=== PATIENT | female | born 1975 | race Two or more races ===

== ENCOUNTER → 2016-08-09 | Outpatient (CLI) | payer BC ==
[~2016-08-09] MED LIST: FIORICET PO; UROCIT PO
--- NOTE | 2016-08-09 10:40 | RADRPT ---
PROCEDURE: XR left knee. CLINICAL INDICATION: Knee pain TECHNIQUE: AP weightbearing, PA weightbearing, lateral weightbearing and sunrise views are availab le for review. COMPARISON: None available FINDINGS: There is moderate to severe osteoarthrosis involving the medial tibial femoral compartment and mild to moderate osteoarthrosis involving the lateral tibial femoral compartment and the patellofemoral c ompartment. This is associated with joint space narrowing, subchondral sclerosis and osteophytosis. There is otherwise normal mineralization, architecture and alignment. No fractures are identified. No osseous lesions are identified. The soft tissues are unremarkable. IMPRESSION: Moderate to severe osteoarthrosis involving the medial tibial femoral compartment and mild to modera te osteoarthrosis involving the lateral tibial femoral compartment and the patellofemoral compartmen t. RPTAT: HGDB .Bulmaro Estrada MD, Date Time Electronically viewed and signed by .Bulmaro Estrada MD, on 08/09/2016 10:39 .B/
== END | disposition home or self-care (01) ==
LOC: HKI 09:20
PROVIDERS: ATTEND Orthopaedic Surgery
DX: M25.562 Pain in left knee (principal); M17.12 Unilateral primary osteoarthritis, left knee
CPT/HCPCS: 73564; G0463

== ENCOUNTER → 2016-09-17 | Outpatient (CLI) | payer BC ==
--- NOTE | 2016-09-17 12:36 | RADRPT ---
PROCEDURE: Limited x-ray of both lower extremities. CLINICAL INDICATION: Bilateral leg pain. TECHNIQUE: Single frontal view of both lower extremities was obtained from the hips to the calves. COMPARISON: Left knee radiographs dated 08/09/2016. FINDINGS: There are mild degenerative changes of the hips with osteophytes noted. There are moderate degenera tive changes of both knees with medial joint compartment narrowing and osteophytes. Left is worse t moreira right. IMPRESSION: 1. Mild degenerative changes of the hips. 2. Moderate degenerative changes of the knees with left worse than right. RPTAT: QQ .Adalberto Davison MD, MD Date Time Electronically viewed and signed by .Adalberto Davison MD, on 09/17/2016 12:35 .R/
== END | disposition home or self-care (01) ==
LOC: HKI 09:32
PROVIDERS: ATTEND Orthopaedic Surgery
DX: M16.0 Bilateral primary osteoarthritis of hip (principal); M17.0 Bilateral primary osteoarthritis of knee
CPT/HCPCS: 77073

== ENCOUNTER 2016-09-28 12:11 | Inpatient (IN) | payer BC ==
[~2016-09-28] VITALS: Ht 160 cm; Wt 85.0 kg
[2016-09-28] VITALS (20 sets, daily range): BP systolic 100–133; BP diastolic 51–68; PULSE 58–98; RESP 12–20; Ht 160 cm; Wt 85.0 kg
[~2016-09-28 12:11] MED LIST changes: +BUPIVACAINE LIPOSOME/PF 266 MG/20 ML VIAL INFIL ONE; +CEFAZOLIN 1 GM INJ ONE; +CEFAZOLIN 2GM/50 ML (PMX) 50 ML X1 BEFORE INCISION IVPB ONE; +CELECOXIB 400 MG PO X1 DOSE PO ONE; +EXPAREL NOTE (BUPIVICAINE LIPOSOMAL) XX SCH; +LACTATED RINGER'S 1,000 ML IV SCH; +PAIN COCKTAIL-CEFUROXIME IRR ONE; +PREGABALIN 300 MG PO X1 PO ONE; +TRANEXAMIC ACID in SOD CHLORIDE 0.9% 100 ML FOR INTRAOP IVPB ONE; +TRANEXAMIC ACID in SOD CHLORIDE 0.9% 100 ML ON CALL TO OR IV ONE; +VANCOMYCIN 1 GM/NS 250 ML X1 BEFORE INCISION IVPB ONE; +oxyCODONE (CR) 10 MG TAB [oxyCONTIN] X1 DOSE PO ONE; +traMADOL 50 MG TAB X 1 DOSE PO ONE
[2016-09-28] MEDS ORDERED: BACITRACIN 50000 UNITS INJ ONE (13:46)
--- NOTE | 2016-09-28 16:14 | HPN ---
Date/Time of Note Date/Time of Note DATE: 09/28/16 TIME: 16:14 Interval H&P Admission Note Pt. seen H&P reviewed: No system changes No changes from H&P on 09/16/16 by DAPHNE Ramsay MD Sep 28, 2016 16:14
[2016-09-28] MEDS ORDERED: SODIUM CL BACTERIOSTATIC 30 ML INJ ONE (16:15)
[2016-09-28] MEDS ORDERED: POLYMYXIN B 500000 UNIT INJ ONE (16:15)
[2016-09-28] MEDS ORDERED: FENTAnyl 50 MCG/ML VIAL ONE (16:31)
[2016-09-28] MEDS ORDERED: LIDOCAINE 2% (SDV) 5 ML INJ ONE (16:31)
[2016-09-28] MEDS ORDERED: PROPOFOL 100 ML ONE (16:31)
[2016-09-28] MEDS ORDERED: MIDAZOLAM 1 MG/ML 2 ML INJ ONE (16:32)
[2016-09-28] MEDS: VANCOMYCIN 1 GM INJ ONE ×2 (17:34→17:37)
[2016-09-28] MEDS ORDERED: ONDANSETRON 4 MG INJ IV PRN ×2 (19:00→19:30)
[2016-09-28] MEDS ORDERED: PROCHLORPERAZINE 10 MG INJ IV PRN (19:00)
[2016-09-28] MEDS ORDERED: DIPHENHYDRAMINE 50 MG INJ IV PRN (19:00)
[2016-09-28] MEDS ORDERED: FENTAnyl 50 MCG/ML VIAL IV PRN ×3 (19:00)
[2016-09-28] MEDS ORDERED: MEPERIDINE 25 MG INJ IV PRN (19:00)
[2016-09-28] MEDS ORDERED: HYDROmorphONE (0.2 MG/ML) 10ML SYG IV PRN ×3 (19:00)
--- NOTE | 2016-09-28 19:12 | PN ---
Date/Time of Note Date/Time of Note DATE: 09/28/16 TIME: 19:10 Assessment/Plan Lines/Catheters IV Catheter Type (from Nrsg): Peripheral IV Assessment/Plan Assessment/Plan Stable in PACU, s/p left TKA -continue Ancef -pain meds as needed -ASA/SCDs -OOB with PT -check AM labs -monitor drain -d/c suggs in AM XR of the left knee is pending at this time Subjective 24 Hr Interval Summary Stable in PACU. Denies pain. Moving all extremities. Drowsy from anesthesia. Exam/Review of Systems Vital Signs Vitals Vital Signs Date Time Temp Pulse Resp B/P Pulse Ox O2 Delivery O2 Flow Rate FiO2 09/28/16 13:35 98.5 74 20 133/59 100 Room Air Exam Free Text/Dictation Hemovac: minimal Dressing dry Incision clean, dry, and intact without redness or drainage Thigh soft 5/5 Quadriceps, Tibialis Anterior, EHL, Gastroc, Soleus, Peroneals Normal sensation Palpable DT/PT, CR <2 sec No distal edema RUBÉN SAMAYOA PA-C Sep 28, 2016 19:12
--- NOTE | 2016-09-28 19:20 | OPR ---
Date/Time of Note Date/Time of Note DATE: 09/28/16 TIME: 19:19 Operative Report Free Text/Dictation Dictation # [id number] Preoperative Diagnosis Left Knee OA Postoperative Diagnosis Same Operation/Procedure Performed Left TKA Surgeon: DAPHNE HARE MD pharmacy assistant: RUBÉN SAMAYOA PA-C Anesthesia: general, spinal Estimated Blood Loss: 50 - 100 ml's Specimens Bone and soft tissue Grafts/Implants Depuy Attune TKA Complications: None DAPHNE HARE MD Sep 28, 2016 19:19
[2016-09-28 19:29] LABS: HEMATOCRIT 35.9 % (37.0-47.0); HEMOGLOBIN 11.7 g/dl (12.0-16.0)
[2016-09-28] MEDS ORDERED: DIPHENHYDRAMINE 25 MG CAP PO PRN (19:30)
[2016-09-28] MEDS ORDERED: NACL 0.9% 3 ML SYG IV SCH (19:30)
[2016-09-28] MEDS ORDERED: NA PHOSPHATE/BIPHOS 133 ML ENEMA PR PRN (19:30)
[2016-09-28] MEDS ORDERED: ASPIRIN (EC) 325 MG TAB PO ONE (19:30)
[2016-09-28] MEDS ORDERED: BISACODYL 10 MG SUPP PR PRN (19:30)
[2016-09-28] MEDS ORDERED: HYDROmorphONE 1 MG/ML SYG IV PRN (19:30)
[2016-09-28] MEDS ORDERED: MAGNESIUM HYDROXIDE 30ML CUP PO PRN (19:30)
[2016-09-28] MEDS: LACTATED RINGER'S 1,000 ML IV SCH (19:33)
[2016-09-28] MEDS: CEFAZOLIN 2 GM/50 ML (PMX) 50 ML IVPB SCH (19:33)
--- NOTE | 2016-09-28 19:39 | RADRPT ---
PROCEDURE: X-ray left knee CLINICAL INDICATION: The patient is status post left knee arthroplasty. TECHNIQUE: 2 views left knee COMPARISON: Left knee plain film series dated 08/09/2016. FINDINGS: Left knee arthroplasty is new, without evident hardware complication. Post surgical air and fluid o daija the left knee. Post surgical drain in place. No acute fracture or dislocation. IMPRESSION: No evident hardware complication or acute fracture. RPTAT: [facility] Physician Silverio Date Time Electronically viewed and signed by Karime Salinas Physician on 09/28/2016 19:38 RS/
[2016-09-28 19:57] LABS: CALCIUM 8.3 mg/dl (8.4-10.2); CREATININE 0.73 mg/dl (0.44-1.00); POTASSIUM 4.2 mmol/L (3.5-5.1)
[2016-09-28] MEDS: DOCUSATE SODIUM 100 MG CAP PO SCH (21:32)
[2016-09-28] MEDS: PREGABALIN 50 MG CAP PO SCH (21:32)
[2016-09-28] MEDS ORDERED: TRANEXAMIC ACID 850 MG in SOD CHLORIDE 0.9% 100 ML IVPB ONE (22:30)
[2016-09-29 00:01] VITALS: BP 110/58; RESP 17
[2016-09-29] MEDS ORDERED: TRANEXAMIC ACID 850 MG in SOD CHLORIDE 0.9% 100 ML IVPB ONE (01:30)
[2016-09-29] MEDS: CEFAZOLIN 2 GM/50 ML (PMX) 50 ML IVPB SCH ×2 (03:28→12:14)
[2016-09-29 05:28] LABS: HEMATOCRIT 34.1 % (37.0-47.0); HEMOGLOBIN 11.1 g/dl (12.0-16.0)
[2016-09-29 05:41] VITALS: BP 112/59; PULSE 57; RESP 18
[2016-09-29 05:44] LABS: CALCIUM 8.6 mg/dl (8.4-10.2); CREATININE 0.68 mg/dl (0.44-1.00); POTASSIUM 4.7 mmol/L (3.5-5.1)
[2016-09-29] MEDS: PANTOPRAZOLE (EC) 40 MG TAB PO SCH ×2 (05:51→18:11)
[2016-09-29] MEDS: LACTATED RINGER'S 1,000 ML IV SCH ×3 (05:51→18:19)
[2016-09-29] MEDS: traMADol 50 MG TAB PO SCH ×4 (05:51→18:00)
[2016-09-29 06:02] LABS: ADD UMIC NO; UR ASCORBIC ACID NEGATIVE (NEGATIVE); UR BILIRUBIN (Dip) NEGATIVE (NEGATIVE); UR BLOOD (Dip) NEGATIVE (NEGATIVE); UR CLARITY CLEAR (CLEAR); UR COLOR STRAW (YELLOW); UR GLUCOSE (Dip) NEGATIVE (NEGATIVE); UR KETONES (Dip) 1+ mg/dL (NEGATIVE); UR LEUKOCYTE ESTERASE (Dip) NEGATIVE Leu/ul (NEGATIVE); UR NITRITE (Dip) NEGATIVE (NEGATIVE); UR SPECIFIC GRAVITY (Dip) 1.017 (1.003-1.030); UR TOTAL PROTEIN (Dip) NEGATIVE (NEGATIVE); UR UROBILINOGEN (Dip) NEGATIVE (NEGATIVE)
[2016-09-29 07:00] VITALS: BP 108/55; RESP 18
--- NOTE | 2016-09-29 07:49 | CONS ---
Date/Time of Note Date/Time of Note DATE: 09/29/16 TIME: 07:41 Assessment/Plan Assessment/Plan Chief Complaint/Hosp Course Impression: 1. This patient is now one day postop a left total knee replacement. 2. She is doing well. Her labs are acceptable and her vital signs are stable. 3. She had some nausea yesterday which has resolved today. She denies any vomiting. Plan: 1. Continue current medication and treatment plan. 2. Physical therapy to start today 3. Postop total knee replacement protocol 4. I will follow patient along with you Problems: Consultation Date/Type/Reason Admit Date/Time Sep 28, 2016 at 12:11 Date of Consultation: Sep 29, 2016 Type of Consultation: Medicine Reason for Consultation Nausea Hx of Present Illness I am seeing this patient today as a medicine consultation. The patient is 1 day postop a left total knee replacement. The patient is awake and alert. The patient did have some postop nausea which has resolved. She denies any chest pain or shortness of breath. Preoperatively the patient was having increasing left knee pain. It was interfering with her ability to walk. She decided to undergo a total knee replacement after failing conservative medical therapy. Constitutional: improved, no complaints ENT: no complaints Respiratory: no complaints Cardiovascular: no complaints Gastrointestinal: no complaints Genitourinary: no complaints Neurologic: no complaints Past Medical History Medical History: no pertinent history Family History Significant Family History: no pertinent family hx Social History Alcohol Use: none Smoking Status: Never smoker Drug Use: none Exam/Review of Systems Vital Signs Vitals Vital Signs Date Time Temp Pulse Resp B/P Pulse Ox O2 Delivery O2 Flow Rate FiO2 09/29/16 05:41 97.4 57 18 112/59 99 Nasal Cannula 2.0 Intake and Output 09/28/16 09/28/16 09/29/16 15:00 23:00 07:00 Intake Total 108.5 ml 400 ml Output Total 380 ml 2160 ml Balance -271.5 ml -1760 ml Exam Constitutional: alert, oriented, well developed Psych: nl mood/affect, no complaints Respiratory: clear to auscultation, normal air movement Cardiovascular: nl pulses, regular rate and rhythm Gastrointestinal: nl liver, spleen, non-tender, soft Musculoskeletal: nl extremities to inspection Results Result Diagram: 09/29/16 0444 09/29/16 0444 Results 24 hrs Laboratory Tests Test 09/28/16 19:25 09/29/16 04:44 09/29/16 05:00 09/29/16 05:49 Hemoglobin 11.7 L 11.1 L Hematocrit 35.9 L 34.1 L Sodium Level 135 133 L Potassium Level 4.2 4.7 Chloride Level 106 102 Carbon Dioxide Level 24 25 Anion Gap 9 11 Blood Urea Nitrogen 9 7 Creatinine 0.73 0.68 Glucose Level 96 107 Calcium Level 8.3 L 8.6 Urine Color STRAW Urine Clarity CLEAR Urine pH 6.0 Urine Specific [place] 1.017 Urine Ketones 1+ H Urine Nitrite NEGATIVE Urine Bilirubin NEGATIVE Urine Urobilinogen NEGATIVE Urine Leukocyte Esterase NEGATIVE Urine Hemoglobin NEGATIVE Urine Glucose NEGATIVE Urine Total Protein NEGATIVE Lab Scanned Report LAB Medications Medications Current Medications Miscellaneous Information 1 ea 1 ea NOTE XX ; Start 09/28/16 at 09:00; Stop at 08:59 Lactated Ringer's (Lr) 1,000 ml @ 125 mls/hr Q8H IV Last administered on 05:51; Admin Dose 125 MLS/HR; Start 09/28/16 at 19:04 Tramadol HCl (Ultram) 50 mg Q6 PO Last administered on 09/29/16 05:51; Admin Dose 50 MG; Start 09/29/16 at 00:00; Stop 10/01/16 at 23:59 Hydromorphone HCl 1 mg 1 mg Q3H PRN IV PAIN LEVEL 8-10; Start 09/28/16 at 19:30 Cefazolin Sodium/ Dextrose (Ancef 2 Gm/50 ml (Pmx)) 50 ml @ 100 mls/hr Q8H IVPB Last administered on 09/29/16 03:28; Admin Dose 100 MLS/HR; Start at 19:30; Stop 09/29/16 at 11:59 Ondansetron HCl (Zofran Inj) 4 mg Q6H PRN IV NAUSEA AND/OR VOMITING; Start 02/04 at 19:30 Bisacodyl (Dulcolax Supp) 10 mg Q12H PRN [place] CONSTIPATION; Start 09/28/16 at 19: 30 Magnesium Hydroxide (Milk Of Mag) 30 ml BID PRN PO CONSTIPATION; Start at 19:30 Sodium Biphosphate/ Sodium Phosphate (Fleet Enema) 133 ml DAILY PRN [place] CONSTIPATION; Start 09/28/16 at 19:30 Docusate Sodium (Colace) 100 mg BID PO Last administered on 09/28/16 21:32; Admin Dose 100 MG; Start 09/28/16 at 21:00 Diphenhydramine HCl (Benadryl) 25 mg Q6H PRN PO PRURITUS; Start 09/28/16 at 19: 30 Acetaminophen/ Hydrocodone Bitart ([place] (7.5-325)) 1 tab Q4H PRN PO PAIN LEVEL 1-3; Start 09/28/16 at 19:30 Acetaminophen/ Hydrocodone Bitart ([place] (7.5-325)) 2 tab Q4H PRN PO PAIN LEVEL 4-7; Start 09/28/16 at 19:30 Aspirin (Ecotrin) 325 mg BID PO ; Start 09/29/16 at 09:00 Pantoprazole (Protonix Tab) 40 mg BID@06,18 PO Last administered on 09/29/16 05:51; Admin Dose 40 MG; Start 09/29/16 at 06:00 Pregabalin (Lyrica) 50 mg BID PO Last administered on 09/28/16 21:32; Admin Dose 50 MG; Start 09/28/16 at 21:00 BOYD VARGAS MD Sep 29, 2016 07:49
--- NOTE | 2016-09-29 09:00 | PN ---
Date/Time of Note Date/Time of Note DATE: 09/29/16 TIME: 08:58 Assessment/Plan Lines/Catheters IV Catheter Type (from Nrsg): Peripheral IV Ruiz in Place (from Nrsg): Yes Assessment/Plan Assessment/Plan Stable POD #1, s/p left TKA -d/c Ancef -pain meds as needed -ASA/SCDs -OOB with PT -drain removed -check AM labs -d/c planning. Will plan to go home upon discharge Subjective 24 Hr Interval Summary No acute overnight events. Denies significant pain. Did not start PT yesterday. VSS, afebrile. Will plan to go home upon discharge. Exam/Review of Systems Vital Signs Vitals Vital Signs Date Time Temp Pulse Resp B/P Pulse Ox O2 Delivery O2 Flow Rate FiO2 09/29/16 07:00 97.5 56 18 108/55 98 09/29/16 05:41 Nasal Cannula 2.0 Intake and Output 09/28/16 09/28/16 09/29/16 15:00 23:00 07:00 Intake Total 108.5 ml 400 ml Output Total 380 ml 2160 ml Balance -271.5 ml -1760 ml Exam Free Text/Dictation Hemovac: 90cc Dressing dry Incision clean, dry, and intact without redness or drainage Thigh soft 5/5 Quadriceps, Tibialis Anterior, EHL, Gastroc, Soleus, Peroneals Normal sensation Palpable DT/PT, CR <2 sec No distal edema Results Result Diagram: 09/29/16 0444 09/29/16 0444 RUBÉN SAMAYOA PA-C Sep 29, 2016 09:00
--- NOTE | 2016-09-29 09:12 | RADRPT ---
PROCEDURE: CR Left Knee CLINICAL INDICATION: Left knee replacement TECHNIQUE: A single AP view of the left knee was submitted. COMPARISON: 09/27/2016 FINDINGS: Osseous Structures: An image was taken with metallic components of the left knee arthroplasty projec ting over the articular surfaces. The visualized osseous elements otherwise appear intact. Joint Spaces: The joint spaces are poorly defined. Soft Tissues: The soft tissues appear unremarkable. IMPRESSION: A single AP image pleural of the left July 22 planning total left knee arthroplasty. Physician Mp Date Time Electronically viewed and signed by Karime Mooney Physician on 09/29/2016 09:11 RH/
[2016-09-29] MEDS: PREGABALIN 50 MG CAP PO SCH ×2 (09:21→20:38)
[2016-09-29] MEDS: DOCUSATE SODIUM 100 MG CAP PO SCH ×2 (09:21→20:38)
[2016-09-29] MEDS: ASPIRIN (EC) 325 MG TAB PO SCH ×2 (09:22→20:37)
[2016-09-29] MEDS: HYDROCODONE/APAP (7.5/325) TAB PO PRN ×2 (16:33→20:36)
[2016-09-29 19:55] VITALS: BP 119/56; RESP 18
[2016-09-30] MEDS: traMADol 50 MG TAB PO SCH ×3 (01:43→12:00)
[2016-09-30] MEDS: LACTATED RINGER'S 1,000 ML IV SCH ×2 (03:04→11:04)
[2016-09-30] MEDS: HYDROCODONE/APAP (7.5/325) TAB PO PRN ×2 (05:03→11:57)
[2016-09-30 06:28] LABS: HEMATOCRIT 32.2 % (37.0-47.0); HEMOGLOBIN 10.3 g/dl (12.0-16.0)
[2016-09-30] MEDS: PANTOPRAZOLE (EC) 40 MG TAB PO SCH (06:30)
[2016-09-30 06:55] LABS: CALCIUM 8.7 mg/dl (8.4-10.2); CREATININE 0.57 mg/dl (0.44-1.00); POTASSIUM 3.6 mmol/L (3.5-5.1)
[2016-09-30 08:48] VITALS: BP 115/57; RESP 18
[2016-09-30] MEDS: PREGABALIN 50 MG CAP PO SCH (09:34)
[2016-09-30] MEDS: DOCUSATE SODIUM 100 MG CAP PO SCH (09:34)
[2016-09-30] MEDS: ASPIRIN (EC) 325 MG TAB PO SCH (09:34)
--- NOTE | 2016-09-30 12:03 | PDOCDIS ---
Discharge Instructions DIAGNOSIS Discharge Diagnosis s/p left TKA CONDITION Patient Condition: Good HOME CARE INSTRUCTIONS: Diet Instructions: Regular ACTIVITY: Activity Restrictions: Slowly Increase Activity Rest between Activity Avoid heavy lifting Do not operate Machinery Do not operate Power Tool Avoid Heavy Housework Keep Limb Elevated Weight Bearing Bathing Restrictions: Shower FOLLOW UP/APPOINTMENTS Follow-up Plan follow up in the office on 10/08/16 OTHER ORDERS: Other Orders: S/P TKA Physical Therapy: Three times per week at home x 2 weeks Daily in Rehab/SNF WB STATUS: WBAT 1. Strengthening exercises for both upper and un-operated lower extremities. 2. Gait training with front wheeled walker 3. Active range of motion exercises to operative knee. 4. When not working on knee range of motion exercises, distal towel roll under operative ankle/distal calf to promote full extension. 5. DO NOT PUT ANYTHING BEHIND OPERATIVE KNEE!!! 6. Quadriceps and hamstring strengthening. 7. May switch to cane in contra lateral hand 6 weeks after surgery. 8. Physical Therapy can open case if nursing is not available. 9. Use Ice Machine as instructed from date of surgery while at rest 3X/day. 10. Patient requires mobile SCDs to reduce risk of developing DVT following TKA. Patient will use the mobile SCDs for 30 days postoperatively. Bathing assistance by home health aide twice weekly if Medicare patient. Occupational Therapy: Evaluation for assistive devices and ADL training. Wound Care: Keep incision dry & covered with Tegaderm until first visit with Dr. Chavez Anticoagulation Orders: Enteric Coated Aspirin 325 mg po bid x 6 weeks from date of surgery Follow-up:Call for an appointment with Dr. Chavez in 1 week after discharged from hospital at DME Orders: FWBrad, 3-in-1 Commode, Polar ice machine, Mobile SCDs RUBÉN SAMAYOA PA-C Sep 30, 2016 12:03
[2016-09-30] MEDS ORDERED: PREG50CA PO (12:40)
[2016-09-30] MEDS ORDERED: ASPI325T32 PO (12:40)
[2016-09-30] MEDS ORDERED: TRAM50TA2 PO (12:40)
[2016-09-30] MEDS ORDERED: PANT40TA4 PO (12:40)
[2016-09-30] MEDS ORDERED: HYDR-3605 PO (12:40)
--- NOTE | 2016-09-30 13:17 | CONS ---
Date/Time of Note Date/Time of Note DATE: 09/30/16 TIME: 13:12 Assessment/Plan Assessment/Plan Chief Complaint/Hosp Course Impression: 1. This patient is now two days postop a left total knee replacement. 2. She is doing well. Her labs are acceptable and her vital signs are stable. Plan: 1. She has been cleared by PT and can be discharged to home today . Problems: Consultation Date/Type/Reason Admit Date/Time Sep 28, 2016 at 12:11 Initial Consult Date 09/29/16 Type of Consultation: Medicine 24 HR Interval Summary Free Text/Dictation She is now 2 days post op a L TKA .She is doing well . She has been up walking with PT . Constitutional: improved, no complaints Exam/Review of Systems Vital Signs Vitals Vital Signs Date Time Temp Pulse Resp B/P Pulse Ox O2 Delivery O2 Flow Rate FiO2 09/30/16 08:48 98.3 69 18 115/57 97 09/29/16 05:41 Nasal Cannula 2.0 Intake and Output 09/29/16 09/29/16 09/30/16 15:00 23:00 07:00 Intake Total 50 ml 2560 ml 450 ml Output Total 1900 ml 700 ml Balance 50 ml 660 ml -250 ml Exam Constitutional: alert, oriented, well developed Respiratory: clear to auscultation, normal air movement Cardiovascular: nl pulses, regular rate and rhythm Gastrointestinal: nl liver, spleen, non-tender, soft Musculoskeletal: nl extremities to inspection Results Result Diagram: 09/30/16 0513 09/30/16 0513 Results 24 hrs Laboratory Tests Test 09/30/16 05:13 Hemoglobin 10.3 L Hematocrit 32.2 L Sodium Level 130 L Potassium Level 3.6 Chloride Level 99 Carbon Dioxide Level 30 Anion Gap 5 L Blood Urea Nitrogen 6 L Creatinine 0.57 Glucose Level 103 Calcium Level 8.7 Medications Medications Current Medications Miscellaneous Information 1 ea 1 ea NOTE XX ; Start 09/28/16 at 09:00; Stop at 08:59 Lactated Ringer's (Lr) 1,000 ml @ 125 mls/hr Q8H IV Last administered on 03:04; Admin Dose 125 MLS/HR; Start 09/28/16 at 19:04 Tramadol HCl (Ultram) 50 mg Q6 PO Last administered on 09/30/16 01:43; Admin Dose 50 MG; Start 09/29/16 at 00:00; Stop 10/01/16 at 23:59 Hydromorphone HCl (Dilaudid) 1 mg Q3H PRN IV PAIN LEVEL 8-10; Start 09/28/16 at 19:30 Ondansetron HCl (Zofran Inj) 4 mg Q6H PRN IV NAUSEA AND/OR VOMITING; Start 02/04 at 19:30 Bisacodyl (Dulcolax Supp) 10 mg Q12H PRN [place] CONSTIPATION; Start 09/28/16 at 19: 30 Magnesium Hydroxide (Milk Of Mag) 30 ml BID PRN PO CONSTIPATION; Start at 19:30 Sodium Biphosphate/ Sodium Phosphate (Fleet Enema) 133 ml DAILY PRN [place] CONSTIPATION; Start 09/28/16 at 19:30 Docusate Sodium (Colace) 100 mg BID PO Last administered on 09/30/16 09:34; Admin Dose 100 MG; Start 09/28/16 at 21:00 Diphenhydramine HCl (Benadryl) 25 mg Q6H PRN PO PRURITUS; Start 09/28/16 at 19: 30 Acetaminophen/ Hydrocodone Bitart ([place] (7.5-325)) 1 tab Q4H PRN PO PAIN LEVEL 1-3 Last administered on 09/30/16 11:57; Admin Dose 1 TAB; Start at 19:30 Acetaminophen/ Hydrocodone Bitart ([place] (7.5-325)) 2 tab Q4H PRN PO PAIN LEVEL 4-7 Last administered on 09/30/16 05:03; Admin Dose 2 TAB; Start at 19:30 Aspirin (Ecotrin) 325 mg BID PO Last administered on 09/30/16 09:34; Admin Dose 325 MG; Start 09/29/16 at 09:00 Pantoprazole (Protonix Tab) 40 mg BID@18 PO Last administered on 09/30/16 06:30; Admin Dose 40 MG; Start 09/29/16 at 06:00 Pregabalin (Lyrica) 50 mg BID PO Last administered on 09/30/16 09:34; Admin Dose 50 MG; Start 09/28/16 at 21:00 BOYD VARGAS MD Sep 30, 2016 13:17
--- NOTE | 2016-09-30 15:39 | PN ---
Date/Time of Note Date/Time of Note DATE: 09/30/16 TIME: 15:38 Assessment/Plan Lines/Catheters IV Catheter Type (from Nrsg): Saline Lock Ruiz in Place (from Nrsg): Yes Assessment/Plan Assessment/Plan Stable POD #2, s/p left TKA -pain meds as needed -ASA/SCDs -OOB with PT -dressing changed -discharge home today -follow up in the office on 10/08/16 Subjective 24 Hr Interval Summary No acute overnight events. Having mild pain but controlled with pain medication. VSS, afebrile. Would like to go home today. Exam/Review of Systems Vital Signs Vitals Vital Signs Date Time Temp Pulse Resp B/P Pulse Ox O2 Delivery O2 Flow Rate FiO2 09/30/16 08:48 98.3 69 18 115/57 97 09/29/16 05:41 Nasal Cannula 2.0 Intake and Output 09/29/16 09/29/16 09/30/16 15:00 23:00 07:00 Intake Total 50 ml 2560 ml 450 ml Output Total 1900 ml 700 ml Balance 50 ml 660 ml -250 ml Exam Free Text/Dictation Dressing dry Incision clean, dry, and intact without redness or drainage Thigh soft 5/5 Quadriceps, Tibialis Anterior, EHL, Gastroc, Soleus, Peroneals Normal sensation Palpable DT/PT, CR <2 sec No distal edema Results Result Diagram: 09/30/1651209/30/16512 RUBÉN SAMAYOA PA-C Sep 30, 2016 15:39
--- NOTE | 2016-10-06 03:54 | OPR ---
DATE OF OPERATION: 09/28/2016 PREOPERATIVE DIAGNOSIS: Left knee osteoarthritis. POSTOPERATIVE DIAGNOSIS: Left knee osteoarthritis. OPERATION PERFORMED: Left total knee arthroplasty. SURGEON: Ugo Chavez MD. RESCUE WORKER: Marques Quinones PA-C. COMPONENTS USED: DePuy Attune size 5 narrow femoral compenent, size [address], 8-mm polyethylene insert, 38-mm patellar button. ANESTHESIA: Spinal plus general endotracheal intubation plus periarticularinjection. ANESTHESIOLOGIST: Christen Klein MD. TOURNIQUET TIME: 68 minutes. ESTIMATED BLOOD LOSS: 50 mL. INTRAVENOUS FLUIDS: 1800 mL of crystalloid. SPECIMENS: Bone and soft tissue. DRAINS: Hemovac x1. COMPLICATIONS: None. DISPOSITION: The patient tolerated the procedure well and was taken to the recovery room in stable condition. INDICATIONS: The patient is 40-year-old woman who has had worsening pain in the left knee with radiographic evidence of severe osteoarthritis primarily in the medial compartment. I felt she would benefit from either a medial unicondylar replacement or a total knee arthroplasty depending on the condition of the lateral and femoral compartments. She has not improved with nonsurgical means of treatment including activity modifications, pain medications, intra-articular injections and ambulatory assist devices. Despite these measures she has had worsening pain and I felt that she would benefit from either a medial unicondylar replacement or a total knee arthroplasty. The risks, benefits, and alternatives of the procedure were explained in detail to the patient. I explained the risks of the surgery to include but not be limited to, bleeding and possible need for blood transfusion; infection; pain; stiffness; neurovascular injury with possible numbness, weakness, and/or paralysis anywhere from the knee down to the toes; fracture; instability; dislocation; wear and/or loosening of the prosthesis and possible need for future revision; blood clots; pulmonary embolism; and anesthetic complications such as heart attack, stroke, GI bleed, pneumonia, and/or . Ample time was allowed for the patient to ask questions, all of which were addressed and answered. The patient understood the risks involved and wished to proceed. Informed consent was signed prior to the procedure. PROCEDURE: The patient's left knee was initialed with a marking pen in the preoperative area to identify the correct operative site. The patient was brought to the operating room and transferred from the [facility] to the operating table where a spinal anesthetic was administered. The patient was then anesthetized and intubated. A Ruiz catheter was placed. A timeout was performed to confirm that the left leg was the correct operative site. The patient was given 2 g of Ancef within one hour prior to the procedure. A tourniquet was placed on the operative proximal thigh. The operative knee and lower extremity were prepped and draped in the usual sterile fashion. The operative lower extremity was elevated and exsanguinated with an Esmarch tourniquet. The proximal thigh tourniquet was inflated to 300 mmHg. The knee was flexed. A midline incision was made and carried down through the subcutaneous tissue and fat with sharp dissection. Limited medial and lateral flaps were raised. A medial parapatellar arthrotomy approach was performed. Synovial fluid was normal in color and consistency. The patella was everted and the knee flexed. There were severe tricompartmental osteoarthritic changes noted. A medial release was performed at the joint line to the midcoronal plane. The ACL and PCL and remnants of the menisci were excised. The stepped drill was used to open up the femoral canal which was irrigated and sucked dry. The intramedullary guide dom was passed up the femur, and the distal cutting block was pinned into place for a 5 degrees valgus cut. The tibia was subluxed anteriorly. The tibial cutoff jig was placed over the center of the talus distally and over the junction of the medial and middle third of the tibial tubercle proximally. The guide was pinned into place and the oscillating saw was used to make the cut. The tibia was sized. The extension gap was checked and accommodated the 8-mm spacer block with the knee in full extension. There was no varus or valgus instability. At this point, the femur was sized with the posterior referencing guide. Two holes were drilled in 3 degrees of external rotation. The two holes were in line with the transepicondylar axis, perpendicular to Nadine's line, and in line with the tibial cutoff jig brought up with the knee flexed 90 degrees and tensed with 2 lamina spreaders, suggesting the femoral rotation was correct. The four-in-one cutting block was pinned into place. The anterior and posterior cuts and chamfer cuts were made with the oscillating saw. The flexion gap was checked and accommodated the 8-mm spacer block at 90 degrees. There was no varus or valgus instability, suggesting the flexion and extension gaps were now equal. The central box was cut out on the femur. The tibia was drilled and punched in proper rotation. Trial components were placed into position with a trial insert. The patella was cut from 22 mm down to 12 mm in size. Three holes were drilled and the trial button placed in position. With all the trials now in place, the knee was taken through range of motion and came to full extension as evidenced by the fact that with the foot on my abdomen and axial loading, there was no tendency for the knee to flex. The knee was able to be flexed to 125 degrees with good patellar tracking with no lateral tilt or subluxation. At this point, I was satisfied with the overall range of motion, stability, and patellar tracking. The trials were removed. The real components were opened. Two bags of cement were mixed, one with and one without premixed antibiotic. The knee was irrigated with antibiotic saline and sucked dry. Once the cement was in a doughy stage, the real components were cemented into place. The knee was held in full extension, and the patellar component was held with a patellar clamp. All excess cement was removed with curettes. As the cement was hardening, the synovial/capsular layer was infiltrated with a mixture of 150 mg of 0.5% Bupivacaine, 8 mg of Duramorph, 300 mcg of epinephrine, 30 mg of Toradol, 100 mcg of clonidine, 750 mg of cefuroxime and 86 mL of normal saline, followed by an injection of 266 mg of liposomal Bupivacaine. A Hemovac drain was placed in the deep portion of the wound and brought out the anterolateral thigh. Once the cement was completely hardened, the trial liner was removed, and the real insert was opened. The tourniquet was let down, and there was good hemostasis. The knee was then irrigated with a mixture of betadine/saline and then antibiotic saline with pulsatile lavage. The real insert was impacted into the tibia and reduced onto to the femur. The arthrotomy was closed with a few interrupted #1 Ethibond in a [id number] fashion, and then closed in a watertight fashion with a running #2 Stratafix suture. Knee flexion was checked against gravity and came to 125 degrees. The subcutaneous layer was irrigated and closed with 2-0 Statafix, and then 3-0 Vicryl and then stepan on the skin. The wound was covered with an occlusive dressing, and secured with cast padding and a bias dressing. The drain was secured with 3-0 nylon. The sponge and needle counts were correct at the end of the case. The patient was then awakened, extubated, and taken to the recovery room in stable condition. Dictated By: Ugo Chavez MD /caitlin/janae /Document#: [id number]
== END 2016-09-30 14:45 | disposition home health service (06) | DRG 470 ==
LOC: REC 12:11 → MS1 20:15
PROVIDERS: ADMIT Orthopaedic Surgery; ATTEND Orthopaedic Surgery
PROC: 0SRD0J9 Replacement of Left Knee Joint with Synthetic Substitute, Cemented, Open Approach (ICD-10-PCS; principal; 2016-09-28 17:00)
DX: M17.12 Unilateral primary osteoarthritis, left knee (principal); F32.9 Major depressive disorder, single episode, unspecified
CPT/HCPCS: 73560; 73562; 80048; 81003; 85014; 85018; 86850; 86900; 86901; 86920; 87081; 87086; 97110; 97116; 97163; 97165; 97530; C1776; C9290; J0171; J0690; J0697; J0735; J1885; J2175; J2250; J2274; J2405; J3010; J3370; J7120

== ENCOUNTER → 2016-10-08 | Outpatient (CLI) | payer BC ==
[~2016-10-08] MED LIST changes: +ASPI325T32 PO; -BUPIVACAINE LIPOSOME/PF 266 MG/20 ML VIAL INFIL ONE; -CEFAZOLIN 1 GM INJ ONE; -CEFAZOLIN 2GM/50 ML (PMX) 50 ML X1 BEFORE INCISION IVPB ONE; -CELECOXIB 400 MG PO X1 DOSE PO ONE; -EXPAREL NOTE (BUPIVICAINE LIPOSOMAL) XX SCH; -FIORICET PO; +HYDR-3605 PO; -LACTATED RINGER'S 1,000 ML IV SCH; -PAIN COCKTAIL-CEFUROXIME IRR ONE; +PANT40TA4 PO; +PREG50CA PO; -PREGABALIN 300 MG PO X1 PO ONE; +TRAM50TA2 PO; -TRANEXAMIC ACID in SOD CHLORIDE 0.9% 100 ML FOR INTRAOP IVPB ONE; -TRANEXAMIC ACID in SOD CHLORIDE 0.9% 100 ML ON CALL TO OR IV ONE; -UROCIT PO; -VANCOMYCIN 1 GM/NS 250 ML X1 BEFORE INCISION IVPB ONE; -oxyCODONE (CR) 10 MG TAB [oxyCONTIN] X1 DOSE PO ONE; -traMADOL 50 MG TAB X 1 DOSE PO ONE
--- NOTE | 2016-10-08 13:01 | PN ---
Date/Time of Note Date/Time of Note DATE: 10/08/16 TIME: 12:58 Assessment/Plan VTE Prophylaxis VTE Prophylaxis Intervention: ambulation, other Assessment/Plan Assessment/Plan ASSESSMENT: 10 days status post left total knee arthroplasty PLAN: The stepan were removed today, and Steri-Strips were applied. She is to continue aspirin 325 mg twice daily for DVT prophylaxis. Per [place] 7.5/325 mg as well as tramadol 50 mg quantity #60 each, were refilled today. She is to continue physical therapy with home health, focusing on knee flexion and extension. We will see her back in 2 weeks for range of motion check. She will need x-rays the left knee done at that time. Subjective 24 Hr Interval Summary Free Text/Dictation Estelita presents today for her first postoperative evaluation on her left knee. She is 10 days status post left total knee arthroplasty. She is doing satisfactory overall. She has been having some discomfort to the left knee, but is progressing as expected. She is doing physical therapy with home health. She denies any fevers or chills. She is taking aspirin twice daily for DVT prophylaxis. She presents today for her first postoperative evaluation. Exam/Review of Systems Exam On exam today, she is alert and oriented 4, and in no acute distress. She is ambulating with a front wheel walker. Exam of the incision demonstrates it to be clean, dry, and intact. [place] are in place. There is no erythema, pus, erythema, or drainage noted. There is moderate soft tissue swelling and mild ecchymosis around the knee joint. Range of motion is 070. Varus valgus forces are stable. Homans sign is negative. Compartments are soft. She is neurovascularly intact distally. RUBÉN SAMAYOA PA-C Oct 08, 2016 13:01
== END | disposition home or self-care (01) ==
LOC: HKI 10:26
PROVIDERS: ATTEND Orthopaedic Surgery
DX: Z47.1 Aftercare following joint replacement surgery (principal); Z96.652 Presence of left artificial knee joint

== ENCOUNTER → 2016-10-22 | Outpatient (CLI) | payer BC | END | disposition home or self-care (01) | LOC: HKI 10:02 | PROVIDERS: ATTEND Orthopaedic Surgery | DX: Z47.1 Aftercare following joint replacement surgery (principal); M17.12 Unilateral primary osteoarthritis, left knee; Z96.652 Presence of left artificial knee joint ==

== ENCOUNTER → 2016-11-05 | Outpatient (CLI) | payer BC ==
[~2016-11-05] MED LIST changes: +FIORICET PO; +UROCIT PO
--- NOTE | 2016-11-05 13:20 | RADRPT ---
PROCEDURE: CR Left Knee CLINICAL INDICATION: Pain TECHNIQUE: AP and lateral weightbearing view were submitted. COMPARISON: 09/28/2016 FINDINGS: Osseous Structures: The components of the total left knee replacement remain well seated. The osseo us elements are otherwise intact. Joint Spaces: The joint spaces are well maintained. A small joint effusion is again evident.. Soft Tissues: Superficial stepan have been removed along with the brain. There is no longer subcut aneous air. IMPRESSION: 1. Well seated total left knee replacement with the osseous elements intact. 2. Small joint effusion 3. Interval removal of the surgical stepan and drain. Physician Mp Date Time Electronically viewed and signed by Physician Mp on 11/05/2016 13:20 /
== END | disposition home or self-care (01) ==
LOC: HKI 09:55
PROVIDERS: ATTEND Orthopaedic Surgery
DX: M17.12 Unilateral primary osteoarthritis, left knee (principal); Z09 Encounter for follow-up examination after completed treatment for conditions other than malignant neoplasm; Z96.652 Presence of left artificial knee joint

== ENCOUNTER 2016-11-11 08:12 | Day surgery (SDC) | payer BC ==
[2016-11-09 14:20] LABS: ADD UMIC NO; UR ASCORBIC ACID NEGATIVE (NEGATIVE); UR BILIRUBIN (Dip) NEGATIVE (NEGATIVE); UR BLOOD (Dip) NEGATIVE (NEGATIVE); UR CLARITY CLEAR (CLEAR); UR COLOR YELLOW (YELLOW); UR GLUCOSE (Dip) NEGATIVE (NEGATIVE); UR KETONES (Dip) NEGATIVE (NEGATIVE); UR LEUKOCYTE ESTERASE (Dip) NEGATIVE Leu/ul (NEGATIVE); UR NITRITE (Dip) NEGATIVE (NEGATIVE); UR SPECIFIC GRAVITY (Dip) 1.011 (1.003-1.030); UR TOTAL PROTEIN (Dip) NEGATIVE (NEGATIVE); UR UROBILINOGEN (Dip) NEGATIVE (NEGATIVE)
[2016-11-09 14:37] LABS: INR 0.95; PROTIME 12.7 Sec (12.2-14.2)
[2016-11-09 14:38] LABS: PARTIAL THROMBOPLASTIN TIME 28.1 Sec (25.0-35.0)
[2016-11-09 14:40] LABS: CALCIUM 9.4 mg/dl (8.4-10.2); CREATININE 0.67 mg/dl (0.44-1.00); POTASSIUM 4.2 mmol/L (3.5-5.1)
[2016-11-09 14:49] LABS: BASOPHIL # 0.1 10^3/ul (0.0-0.1); BASOPHILS % 0.6 % (0.0-2.0); EOSINOPHILS # 0.3 10^3/ul (0.0-0.5); EOSINOPHILS % 2.6 % (0.0-7.0); HEMATOCRIT 38.7 % (37.0-47.0); HEMOGLOBIN 12.8 g/dl (12.0-16.0); LYMPHOCYTES # 2.5 10^3/ul (0.8-2.9); LYMPHOCYTES % 23.6 % (15.0-51.0); MEAN CORPUSCULAR HEMOGLOBIN 28.9 pg (29.0-33.0); MEAN CORPUSCULAR HGB CONC 33.1 g/dl (32.0-37.0); MEAN CORPUSCULAR VOLUME 87.4 fl (82.0-101.0); MEAN PLATELET VOLUME 10.6 fl (7.4-10.4); MONOCYTE # 0.8 10^3/ul (0.3-0.9); MONOCYTES % 7.1 % (0.0-11.0); NEUTROPHILS % 65.5 % (39.0-77.0); PLATELET COUNT 313 10^3/UL (140-415); RED BLOOD COUNT 4.43 10^6/ul (4.20-5.40); RED CELL DISTRIBUTION WIDTH 13.3 % (11.5-14.5); WHITE BLOOD COUNT 10.6 10^3/ul (4.8-10.8)
--- NOTE | 2016-11-10 11:34 | HP ---
DATE OF ADMISSION: 11/11/2016 DATE OF SURGERY: 11/11/2016, per Dr. Guevara HISTORY OF PRESENT ILLNESS: The patient is a 40-year-old lady who had a total knee replacement on 09/28/2016 and is being readmitted for manipulation under general anesthesia of the left knee. The patient is a non-diabetic and non-hypertensive. Previously has been healthy with severe degenerative joint disease of the knee and the patient underwent total knee replacement on 09/28/2016 and has been having pain with difficulty with movement and had been seen by Dr. Guevara and advise to have manipulation under the general anesthesia. REVIEW OF SYSTEMS: HEENT: HEAD: No headache, focal weakness or numbness. EYES: No blurry vision or glaucoma. ENT: Noncontributory. NECK: No history of thyroid disease. CHEST: No bronchitis, atrial fibrillation or asthma. The patient does not smoke. HEART: No PND, orthopnea, palpitations. Denies any palpitations or chest pains at this time. GASTROINTESTINAL: No constipation, diarrhea, change in bowel habits. Three months ago. Patient had bright red bleeding per rectum and was due to have GI workup and she will have it done after she recovers from the knee surgery. The patient had been on aspirin 325 mg twice daily, and does not complain of any bleeding at this time. GENITOURINARY: No dysuria, hematuria or kidney stones. He has not had a mammogram recently and is due to have one. FAMILY HISTORY: Mother had hypertension. Mother's aunt had breast cancer. ALLERGIES: NO KNOWN ALLERGIES. MEDICATIONS: [place] 5/325 mg every 4-6 h as needed. Aspirin 325 mg twice a day. PHYSICAL EXAMINATION: GENERAL: The patient is a very pleasant lady who is presently in no acute distress. VITAL SIGNS: Blood pressure 130/80, respiratory 20 per minute. HEENT: Head normocephalic. No pallor, cyanosis, or icterus. Tongue is moist. NECK: Supple. No thyromegaly, bruits, or lymphadenopathy. CHEST: Clinically clear. HEART: S1, S2. No definite gallops or murmurs. ABDOMEN: Soft, nontender. No hepato or splenomegaly. EXTREMITIES: No edema. Pedal pulses are 2+ bilaterally. Homans' sign is negative. NEUROLOGIC: No localizing or lateralizing signs. LABORATORY DATA: WBC count 10.2, hematocrit 36.7. PT, INR 1, PTT 25.1. Sodium 142, potassium 4.2. IMAGING: Chest x-ray shows lungs clear. EKG: EKG shows normal sinus rhythm, no acute changes. IMPRESSION: The patient's overall medical condition is stable for the proposed surgery. Namely manipulation under general anesthesia of the left knee. Status post total knee arthroplasty. The patient's overall medical condition is stable for the proposed surgery per Dr. Guevara. Dictated By: Elver Washburn MD /caitlin/bob /Document#: [id number]
[~2016-11-11] VITALS: Ht 160 cm; Wt 86.0 kg
[2016-11-11] VITALS (24 sets, daily range): BP systolic 101–149; BP diastolic 49–88; PULSE 58–89; RESP 17–20; Ht 160 cm; Wt 86.0 kg
[~2016-11-11 08:12] MED LIST changes: -FIORICET PO; +SEVOFLURANE 15 MIN ONE; -UROCIT PO
[2016-11-11] MEDS ORDERED: PREGABALIN 300 MG PO X1 PO ONE (08:30)
[2016-11-11] MEDS ORDERED: oxyCODONE (CR) 10 MG TAB [oxyCONTIN] X1 DOSE PO ONE (08:30)
[2016-11-11] MEDS ORDERED: traMADOL 50 MG TAB X 1 DOSE PO ONE (08:30)
[2016-11-11] MEDS ORDERED: CELECOXIB 400 MG PO X1 DOSE PO ONE (08:30)
[2016-11-11] MEDS ORDERED: LACTATED RINGER'S 1,000 ML IV SCH (08:30)
[2016-11-11] MEDS ORDERED: MEPERIDINE 25 MG INJ IV PRN (09:30)
[2016-11-11] MEDS ORDERED: HYDROmorphONE (0.2 MG/ML) 10ML SYG IV PRN ×2 (09:30)
[2016-11-11] MEDS ORDERED: OXYCODONE/ACETAMINOPHEN (5/325) TAB PO PRN ×2 (09:30)
[2016-11-11] MEDS ORDERED: ONDANSETRON 4 MG INJ IV PRN (09:30)
[2016-11-11] MEDS ORDERED: PROCHLORPERAZINE 10 MG INJ IV PRN (09:30)
[2016-11-11] MEDS ORDERED: DIPHENHYDRAMINE 50 MG INJ IV PRN (09:30)
[2016-11-11] MEDS ORDERED: PROPOFOL 20 ML ONE (09:34)
[2016-11-11] MEDS ORDERED: LIDOCAINE 2% (SDV) 5 ML INJ ONE (09:34)
[2016-11-11] MEDS ORDERED: MIDAZOLAM 1 MG/ML 2 ML INJ ONE (09:34)
[2016-11-11] MEDS ORDERED: FENTAnyl 50 MCG/ML VIAL ONE (09:34)
--- NOTE | 2016-11-11 09:54 | HPN ---
Date/Time of Note Date/Time of Note DATE: 11/11/16 TIME: 09:54 Interval H&P Admission Note Pt. seen H&P reviewed: No system changes No changes from H&P on DAPHNE HARE MD Nov 11, 2016 09:54
[2016-11-11] MEDS ORDERED: ONDANSETRON 4 MG INJ ONE (10:03)
[2016-11-11] MEDS ORDERED: METOCLOPRAMIDE 10 MG INJ ONE (10:03)
--- NOTE | 2016-11-11 10:28 | OPR ---
Date/Time of Note Date/Time of Note DATE: 11/11/16 TIME: 10:20 Operative Report Procedure Description DATE: 11/11/2016 PREOPERATIVE DIAGNOSIS: Stiff left total knee arthroplasty POSTOPERATIVE DIAGNOSIS: Stiff left total knee arthroplasty OPERATION PERFORMED: Manipulation under anesthesia of left total knee arthroplasty. SURGEON: Ugo Hare MD ANESTHESIA: General anesthesia ANESTHESIOLOGIST: Sallie Aponte M.D. INTRAVENOUS FLUIDS: 500 cc COMPLICATIONS: None. DISPOSITION: The patient tolerated the procedure well and was taken to the recovery room in stable condition. INDICATIONS: The patient is a 40-year-old woman who recently underwent a left total knee arthroplasty. Despite physical therapy she has struggled to achieve full flexion. I felt she would benefit from a manipulation under anesthesia. The risks of the procedure were explained to include but not be limited to persistent pain, stiffness, fracture, dislodgment or dislocation of the components, and anesthetic complications such as heart attack stroke GI bleed pneumonia and/or . Ample time was left for the patient to ask questions all of which were addressed and answered. She understood the risks involved and wished to proceed. Informed consent was signed prior to the procedure. PROCEDURE: The patient's left knee was initialed with a marking pen in the preoperative area to identify the correct operative site. The patient was brought to the operating room and transferred from the [facility] to the operating table where a spinal anesthetic was administered. The patient was then anesthetized and intubated. Once adequate anesthesia was on board and she was relaxed I gently flexed the knee and can feel some adhesions dissipate. I was able to flex the knee up to 120. It was held in flexion for about 5 minutes. A digital photograph was obtained to document the flexion. She was then awakened and extubated and taken to the recovery room in stable condition. UGO HARE MD Nov 11, 2016 10:28
[2016-11-11] MEDS: FENTAnyl 50 MCG/ML VIAL IV PRN ×4 (10:37→11:30)
--- NOTE | 2016-11-11 10:56 | RADRPT ---
PROCEDURE: CR Left Knee CLINICAL INDICATION: Status post manipulation under anesthesia TECHNIQUE: Portable AP and lateral views were submitted. COMPARISON: 11/05/2016 FINDINGS: Osseous Structures: A well seated total left knee replacement is again noted. The osseous elements otherwise appear intact. Joint Spaces: There is narrowing of the patellar femoral joint space. The prosthetic femoral tibial joint spaces well maintained and there is no longer joint effusion. Soft Tissues: The soft tissues appear unremarkable. IMPRESSION: 1. Well seated total left hip replacement again noted with the osseous elements otherwise intact. 2. The patellar femoral joint space appears narrowed but there is no longer joint effusion evident. Physician Mp Date Time Electronically viewed and signed by Physician Mp on 11/11/2016 10:56 /
== END 2016-11-11 14:10 | disposition home or self-care (01) ==
LOC: SDS 08:12
PROVIDERS: ATTEND Orthopaedic Surgery
DX: M25.662 Stiffness of left knee, not elsewhere classified (principal)
CPT/HCPCS: 27570; 73560; 80048; 81003; 84703; 85025; 85610; 85651; 85730; J2250; J2405; J2765; J3010

== ENCOUNTER → 2016-11-19 | Outpatient (CLI) | payer BC ==
[~2016-11-19] MED LIST changes: -PANT40TA4 PO; -PREG50CA PO; -SEVOFLURANE 15 MIN ONE; -TRAM50TA2 PO
--- NOTE | 2016-11-19 11:17 | PN ---
Date/Time of Note Date/Time of Note DATE: 11/19/16 TIME: 11:13 Outpatient Progress Note HPI The patient presents today for a postoperative evaluation after her manipulation under anesthesia. She has been doing physical therapy since she underwent the manipulation but notes that her knee is somewhat stiff, now she lacks extension. She denies any worsening pain but is complaining of some mild discomfort. She does state her flexion is better overall. She denies any fevers or chills. She presents today for a follow-up evaluation. Physical Exam On exam today, she is alert and oriented 4, and in no acute distress. Exam of the left knee demonstrates it to be clean, dry, and intact. There is no erythema warmth, pus, or drainage noted. Range of motion is 1590. She does have some mild soft tissue swelling adjacent to the knee. Compartments otherwise soft. Homans sign is negative. She is neurovascular intact distally. Imaging: X-rays left knee were obtained today and reviewed by me. Demonstrate good anatomic alignment with no fractures or dislocations identified. Allergies Coded Allergies: No Known Allergy (Unverified , 11/11/16) Assessment/Plan Assessment: Status post manipulation under anesthesia of her left TKA Plan: The patient is to continue with vigorous physical therapy exercises to work on her flexion and extension. She is to continue to take pain medicine as needed to control her pain so she can optimize her physical therapy sessions. Additionally she will follow-up with Dr. Chavez in 1 week at [facility]. Medications Home Meds Active Scripts Hydrocodone/Acetaminophen (Hydrocodon-Acetaminoph 7.5-325) 1 Each Tablet, 1 TAB PO Q4H Y for PAIN LEVEL 1-3 for 30 Days, #60 TAB Prov:RUBÉN SAMAYOA PA-C 09/30/16 Aspirin (Aspir-Malika) 325 Mg Tablet., 325 MG PO BID for 40 Days, #80 Prov:RUBÉN SAMAYOA PA-C 09/30/16 RUBÉN SAMAYOA PA-C Nov 19, 2016 11:17
--- NOTE | 2016-11-19 14:21 | RADRPT ---
PROCEDURE: XR Left Knee. CLINICAL INDICATION: Left knee pain. Postop. TECHNIQUE: Two views. Frontal and lateral. COMPARISON: 11/11/2016 marcus FINDINGS: There is no fracture or dislocation. The soft tissues are normal. There is a total left knee arthroplasty which appears satisfactory. There is no lytic or blastic lesion. IMPRESSION: 1. Satisfactory postoperative appearance of the left knee. RPTAT: QQ .Adalberto Davison MD, MD Date Time Electronically viewed and signed by .Adalberto Davison MD, on 11/19/2016 14:21 .R/
== END | disposition home or self-care (01) ==
LOC: HKI 10:13
PROVIDERS: ATTEND Orthopaedic Surgery
DX: M25.562 Pain in left knee (principal); R22.42 Localized swelling, mass and lump, left lower limb; Z96.652 Presence of left artificial knee joint; Z79.82 Long term (current) use of aspirin